=== PATIENT | male | born 1995 | race Two or more races ===

== ENCOUNTER 2018-07-20 20:47 | Inpatient (IN) | payer BC ==
[~2018-07-20] VITALS: Ht 172.7 cm; Wt 72.1 kg
[2018-07-20] MEDS ORDERED: IBUPROFEN600 MG ORAL (23:36)
[2018-07-20] MEDS ORDERED: DOXYCYCLINE MO100 MG ORAL (23:36)
[2018-07-21] VITALS: BP 141/81
[2018-07-21] MEDS ORDERED: Norco 5mg/325mg tab ORAL PRN (01:00)
[2018-07-21] MEDS: Vancomycin 1 GM in D5W 275 ML IVPB SCH ×2 (03:43→14:35)
[2018-07-21 04:00] VITALS: BP 111/62
[2018-07-21] MEDS ORDERED: ceFAZolin sod 1 GM in D5W 55 ML IVPB SCH (06:00)
[2018-07-21 06:07] LABS: BASOPHILS % (AUTO) 0.6 % (0.0-2.0); EOSINOPHILS % (AUTO) 0.7 % (0.0-3.0); HEMATOCRIT 41.2 % (42.0-52.0); HEMOGLOBIN 14.7 G/DL (14.2-18.0); LYMPHOCYTES % (AUTO) 8.8 % (20.0-45.0); MEAN CORPUSCULAR VOLUME 84 FL (80-99); MONOCYTES % (AUTO) 10.1 % (1.0-10.0); NEUTROPHILS % (AUTO) 79.8 % (45.0-75.0); PLATELET COUNT 278 K/UL (150-450); RED BLOOD COUNT 4.87 M/UL (4.70-6.10); WHITE BLOOD COUNT 15.7 K/UL (4.8-10.8)
[2018-07-21 06:12] LABS: ALANINE AMINOTRANSFERASE 18 U/L (12-78); ALBUMIN 3.6 G/DL (3.4-5.0); ALBUMIN/GLOBULIN RATIO 1.2 (1.0-2.7); ALKALINE PHOSPHATASE 60 U/L (46-116); ANION GAP 10 mmol/L (5-15); ASPARTATE AMINO TRANSFERASE 19 U/L (15-37); BILIRUBIN,TOTAL 0.9 MG/DL (0.2-1.0); BLOOD UREA NITROGEN 7 mg/dL (7-18); CALCIUM 8.5 MG/DL (8.5-10.1); CARBON DIOXIDE 25 MMOL/L (21-32); CHLORIDE 106 MMOL/L (98-107); CREATININE 1.1 MG/DL (0.55-1.30); PHOSPHORUS 3.4 MG/DL (2.5-4.9); POTASSIUM 3.3 MMOL/L (3.5-5.1); SODIUM 141 MMOL/L (136-145)
[2018-07-21 08:00] VITALS: BP 120/65
[2018-07-21 12:00] VITALS: BP 122/73
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
[2018-07-21] MEDS: ceFAZolin 1gm/50ml Premix 50 ML IV SCH ×2 (13:29→22:05)
[2018-07-21] MEDS: Norco 5mg/325mg tab ORAL PRN ×2 (13:35→20:53)
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
--- NOTE | 2018-07-21 15:10 | History & Physical ---
History and Physical History & Physicial Abhi Mazariegos MD Jul 21, 2018 15:10
[2018-07-21 16:00] VITALS: BP 107/67
[2018-07-21] MEDS: Magnesium Oxide 400mg tab ORAL SCH (17:08)
[2018-07-21 20:00] VITALS: BP 113/67
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
[2018-07-22 00:36] VITALS: BP 110/61
[2018-07-22] MEDS: Vancomycin 1 GM in D5W 275 ML IVPB SCH ×2 (02:48→15:00)
[2018-07-22 04:58] VITALS: BP 102/59
[2018-07-22] MEDS: ceFAZolin 1gm/50ml Premix 50 ML IV SCH (05:33)
[2018-07-22 06:16] LABS: BASOPHILS % (AUTO) 0.8 % (0.0-2.0); EOSINOPHILS % (AUTO) 4.2 % (0.0-3.0); HEMATOCRIT 44.7 % (42.0-52.0); HEMOGLOBIN 15.5 G/DL (14.2-18.0); LYMPHOCYTES % (AUTO) 16.1 % (20.0-45.0); MEAN CORPUSCULAR VOLUME 85 FL (80-99); MONOCYTES % (AUTO) 13.7 % (1.0-10.0); NEUTROPHILS % (AUTO) 65.2 % (45.0-75.0); PLATELET COUNT 275 K/UL (150-450); RED BLOOD COUNT 5.24 M/UL (4.70-6.10); RED CELL DISTRIBUTION WIDTH 10.1 % (11.6-14.8); WHITE BLOOD COUNT 10.4 K/UL (4.8-10.8)
[2018-07-22 06:41] LABS: ALANINE AMINOTRANSFERASE 16 U/L (12-78); ALBUMIN 3.6 G/DL (3.4-5.0); ALKALINE PHOSPHATASE 68 U/L (46-116); ANION GAP 6 mmol/L (5-15); ASPARTATE AMINO TRANSFERASE 15 U/L (15-37); BILIRUBIN,TOTAL 0.5 MG/DL (0.2-1.0); BLOOD UREA NITROGEN 8 mg/dL (7-18); CALCIUM 8.9 MG/DL (8.5-10.1); CARBON DIOXIDE 30 MMOL/L (21-32); CHLORIDE 104 MMOL/L (98-107); CREATININE 1.1 MG/DL (0.55-1.30); POTASSIUM 3.8 MMOL/L (3.5-5.1); SODIUM 140 MMOL/L (136-145)
[2018-07-22 08:00] VITALS: BP 116/75
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
[2018-07-22] MEDS: Magnesium Oxide 400mg tab ORAL SCH ×2 (09:03→12:36)
[2018-07-22] MEDS: Norco 5mg/325mg tab ORAL PRN (09:15)
--- NOTE | 2018-07-22 10:04 | Pulmonology Progress Note ---
Assessment/Plan Assessment/Plan ASSESSMENT Possible sepsis Leukocytosis-resolved Cellulitis E/lyte imbalance: hypokalemia, hypomagnesemia Asthma PLAN CARE Med Surg floor antibiotics surgery follows wound care as per surgery recs pain management venous duplex BLE results pending DVT prophylaxis supportive care monitor lytes and correct prn stable resp status, no signs of resp distress or bronchospasm dc plan soon on oral abx as per ID recs case discussed and evaluated by supervising physician Subjective Allergies: Coded Allergies: No Known Allergies (Unverified , 07/20/18) Subjective leukocytosis resolved, fever resolved pain controlled seen and evaluated by ID specialist K stable Objective Last 24 Hour Vital Signs Date Time Temp Pulse Resp B/P (MAP) Pulse Ox O2 Delivery O2 Flow Rate FiO2 07/22/18 09:15 98.5 07/22/18 08:00 98.5 71 19 116/75 (89) 99 98.5 07/22/18 04:58 97.9 64 18 102/59 (73) 99 97.9 07/22/18 00:36 97.9 75 18 110/61 (77) 99 97.9 07/21/18 23:16 Room Air 07/21/18 21:23 98.6 07/21/18 20:53 98.6 07/21/18 20:00 98.2 89 18 113/67 (82) 99 98.2 07/21/18 19:32 97 16 98 Room Air 21 07/21/18 19:30 97 18 97 Room Air 21 07/21/18 16:00 98.6 69 19 107/67 (80) 99 98.6 07/21/18 12:00 97.9 87 18 122/73 (89) 99 97.9 Intake and Output 07/21/18 07/22/18 19:00 07:00 Intake Total 480 ml 725.000 ml Output Total 800 ml Balance -320 ml 725.000 ml Intake Oral 480 ml 350 ml IV Total 375.000 ml Output Urine Total 800 ml # Voids 2 General Appearance: no acute distress HEENT: normocephalic, atraumatic, anicteric, mucous membranes moist, PERRL Respiratory/Chest: lungs clear, normal breath sounds, no respiratory distress Cardiovascular: normal rate Abdomen: soft, non tender, non distended Extremities: no edema Skin: other - left lower leg with wound, dressing C/D/I Neurologic/Psychiatric: alert, oriented x 3, responsive Musculoskeletal: normal muscle bulk Laboratory Tests 07/22/18 05:35: White Blood Count 10.4, Red Blood Count 5.24, Hemoglobin 15.5, Hematocrit 44.7, Mean Corpuscular Volume 85, Mean Corpuscular Hemoglobin 29.5, Mean Corpuscular Hemoglobin Concent 34.7, Red Cell Distribution Width 10.1L, Platelet Count 275, Mean Platelet Volume 5.9L, Neutrophils (%) (Auto) 65.2, Lymphocytes (%) (Auto) 16.1L, Monocytes (%) (Auto) 13.7H, Eosinophils (%) (Auto) 4.2H, Basophils (%) ( Auto) 0.8, Erythrocyte Sedimentation Rate 7, Sodium Level 140, Potassium Level 3.8, Chloride Level 104, Carbon Dioxide Level 30, Anion Gap 6, Blood Urea Nitrogen 8, Creatinine 1.1, Estimat Glomerular Filtration Rate > 60, Glucose Level 88, Calcium Level 8.9, Phosphorus Level 4.0, Magnesium Level 2.0, Total Bilirubin 0.5, Aspartate Amino Transf (AST/SGOT) 15, Alanine Aminotransferase ( ALT/SGPT) 16, Alkaline Phosphatase 68, C-Reactive Protein, Quantitative 7.1H, Total Protein 7.2, Albumin 3.6, Globulin 3.6, Albumin/Globulin Ratio 1.0 Current Medications Medications (Trade) Dose Ordered Sig/[place] Route PRN Reason Start Time Stop Time Status Last Admin Dose Admin Acetaminophen (Tylenol) 650 mg Q6H PRN ORAL Mild Pain/Temp > 100.5 07/21/18 01:00 08/20/18 00:59 07/21/18 03:36 Acetaminophen/ Hydrocodone Bitart ([place] 5/325) 1 tab Q6H PRN ORAL Severe Pain (Pain Scale 7-10) 07/21/18 02:18 07/28/18 02:17 07/22/18 09:15 Budesonide/ Formoterol Fumarate (Symbicort 160/ 4.5) 2 puff TWICE A DAY INH 07/21/18 18:00 08/20/18 17:59 07/22/18 09:02 Magnesium Oxide (Mag-Ox 400mg) 400 mg THREE TIMES A DAY ORAL 07/21/18 18:00 07/23/18 17:59 07/22/18 09:03 Ondansetron HCl (Zofran) 4 mg Q4H PRN IVP Nausea & Vomiting 07/21/18 01:00 08/20/18 00:59 Temazepam (Restoril) 15 mg HSPRN PRN ORAL Insomnia 07/21/18 21:00 07/28/18 20:59 Vancomycin HCl (Vanco rx to dose) 1 ea DAILY PRN MISC per protocol 07/21/18 01:45 08/20/18 01:44 Vancomycin HCl 1 gm/Dextrose 275 ml @ 183.708 mls/hr Q12H IVPB 07/21/18 03:00 07/26/18 02:59 07/22/18 02:48 Marilin Reyes NP Jul 22, 2018 10:04
--- NOTE | 2018-07-22 11:42 | General Surgery Progress Note ---
General Surgery-Progress Note Subjective Additional Comments leukocytosis resolved. wounds stable. doing well. comfortable. minimal pain. ambulatory. Objective Last 24 Hour Vital Signs Date Time Temp Pulse Resp B/P (MAP) Pulse Ox O2 Delivery O2 Flow Rate FiO2 07/22/18 11:26 94 18 98 Room Air 21 07/22/18 11:26 94 18 98 Room Air 21 07/22/18 09:45 98.5 07/22/18 09:15 98.5 07/22/18 09:00 Room Air 07/22/18 08:00 98.5 71 19 116/75 (89) 99 98.5 07/22/18 04:58 97.9 64 18 102/59 (73) 99 97.9 07/22/18 00:36 97.9 75 18 110/61 (77) 99 97.9 07/21/18 23:16 Room Air 07/21/18 20:53 98.6 07/21/18 20:00 98.2 89 18 113/67 (82) 99 98.2 07/21/18 19:32 97 16 98 Room Air 21 07/21/18 19:30 97 18 97 Room Air 21 07/21/18 16:00 98.6 69 19 107/67 (80) 99 98.6 07/21/18 12:00 97.9 87 18 122/73 (89) 99 97.9 I&O Intake and Output 07/21/18 07/22/18 19:00 07:00 Intake Total 480 ml 725.000 ml Output Total 800 ml Balance -320 ml 725.000 ml Intake Oral 480 ml 350 ml IV Total 375.000 ml Output Urine Total 800 ml # Voids 2 Dressing: saturated Wound: clean Drains: none Cardiovascular: RSR Respiratory: clear Abdomen: soft, flat, non-tender, present bowel sounds Extremities: other - right leg with improved edema and cellulitis. wound clean with only serous drainage today. overall improving. Laboratory Tests Test 07/22/18 05:35 White Blood Count 10.4 K/UL (4.8-10.8) Red Blood Count 5.24 M/UL (4.70-6.10) Hemoglobin 15.5 G/DL (14.2-18.0) Hematocrit 44.7 % (42.0-52.0) Mean Corpuscular Volume 85 FL (80-99) Mean Corpuscular Hemoglobin 29.5 PG (27.0-31.0) Mean Corpuscular Hemoglobin Concent 34.7 G/DL (32.0-36.0) Red Cell Distribution Width 10.1 % (11.6-14.8) L Platelet Count 275 K/UL (150-450) Mean Platelet Volume 5.9 FL (6.5-10.1) L Neutrophils (%) (Auto) 65.2 % (45.0-75.0) Lymphocytes (%) (Auto) 16.1 % (20.0-45.0) L Monocytes (%) (Auto) 13.7 % (1.0-10.0) H Eosinophils (%) (Auto) 4.2 % (0.0-3.0) H Basophils (%) (Auto) 0.8 % (0.0-2.0) Erythrocyte Sedimentation Rate 7 MM/HR (0-15) Sodium Level 140 MMOL/L (136-145) Potassium Level 3.8 MMOL/L (3.5-5.1) Chloride Level 104 MMOL/L (98-107) Carbon Dioxide Level 30 MMOL/L (21-32) Anion Gap 6 mmol/L (5-15) Blood Urea Nitrogen 8 mg/dL (7-18) Creatinine 1.1 MG/DL (0.55-1.30) Estimat Glomerular Filtration Rate > 60 mL/min (>60) Glucose Level 88 MG/DL (74-106) Calcium Level 8.9 MG/DL (8.5-10.1) Phosphorus Level 4.0 MG/DL (2.5-4.9) Magnesium Level 2.0 MG/DL (1.8-2.4) Total Bilirubin 0.5 MG/DL (0.2-1.0) Aspartate Amino Transf (AST/SGOT) 15 U/L (15-37) Alanine Aminotransferase (ALT/SGPT) 16 U/L (12-78) Alkaline Phosphatase 68 U/L (46-116) C-Reactive Protein, Quantitative 7.1 mg/dL (0.00-0.90) H Total Protein 7.2 G/DL (6.4-8.2) Albumin 3.6 G/DL (3.4-5.0) Globulin 3.6 g/dL Albumin/Globulin Ratio 1.0 (1.0-2.7) Plan Problems: (1) Cellulitis Assessment & Plan: right lower leg with prior lacerations noted, wound dehiscence, seropurulent drainage, cellulitis afebrile, HD stable, leukocytosis resolved wound evaluated at bedside and 3cm transverse laceration noted with dehiscense of medial aspect and seropurulent drainage. wound explored and no abscess cavity noted wounds cleaned, packing and dressings applied -Abx as per ID -Elevate affected extremity -packing and dressing BID -wash wounds with saline -okay to ambulate -okay to d/c from surgical standpoint Jose Narayanan Jul 22, 2018 11:41
[2018-07-22 12:00] VITALS: BP 119/71
--- NOTE | 2018-07-22 14:26 | Internal Med Progress Note ---
Subjective Date of Service: Jul 22, 2018 Physician Name Dom Luna Attending Physician Abhi Mazariegos MD Current Medications Medications (Trade) Dose Ordered Sig/[place] Route PRN Reason Start Time Stop Time Status Last Admin Dose Admin Acetaminophen (Tylenol) 650 mg Q6H PRN ORAL Mild Pain/Temp > 100.5 07/21/18 01:00 08/20/18 00:59 07/21/18 03:36 Acetaminophen/ Hydrocodone Bitart ([place] 5/325) 1 tab Q6H PRN ORAL Severe Pain (Pain Scale 7-10) 07/21/18 02:18 07/28/18 02:17 07/22/18 09:15 Budesonide/ Formoterol Fumarate (Symbicort 160/ 4.5) 2 puff TWICE A DAY INH 07/21/18 18:00 08/20/18 17:59 07/22/18 09:02 Magnesium Oxide (Mag-Ox 400mg) 400 mg THREE TIMES A DAY ORAL 07/21/18 18:00 07/23/18 17:59 07/22/18 12:36 Ondansetron HCl (Zofran) 4 mg Q4H PRN IVP Nausea & Vomiting 07/21/18 01:00 08/20/18 00:59 Temazepam (Restoril) 15 mg HSPRN PRN ORAL Insomnia 07/21/18 21:00 07/28/18 20:59 Vancomycin HCl (Vanco rx to dose) 1 ea DAILY PRN MISC per protocol 07/21/18 01:45 08/20/18 01:44 Vancomycin HCl 1 gm/Dextrose 275 ml @ 183.708 mls/hr Q12H IVPB 07/21/18 03:00 07/26/18 02:59 07/22/18 02:48 Allergies: Coded Allergies: No Known Allergies (Unverified , 07/20/18) ROS Limited/Unobtainable: No Constitutional: Reports: no symptoms HEENT: Reports: no symptoms Cardiovascular: Reports: no symptoms Respiratory: Reports: no symptoms Gastrointestinal/Abdominal: Reports: no symptoms Genitourinary: Reports: no symptoms Neurologic/Psychiatric: Reports: no symptoms Subjective 23 YO M admitted with right leg cellulitis. Cover for Int Med-Dr Mazariegos. Objective Last Vital Signs Date Time Temp Pulse Resp B/P (MAP) Pulse Ox O2 Delivery O2 Flow Rate FiO2 07/22/18 12:00 97.8 72 18 119/71 (87) 99 97.8 07/22/18 11:26 Room Air 21 General Appearance: WD/WN, no apparent distress, alert EENT: PERRL/EOMI, normal ENT inspection Neck: non-tender, normal alignment, supple, normal inspection Cardiovascular: normal peripheral pulses, normal rate, regular rhythm, no gallop/murmur, no JVD Respiratory/Chest: chest wall non-tender, lungs clear, normal breath sounds, no respiratory distress, no accessory muscle use Abdomen: normal bowel sounds, non tender, soft, no organomegaly, no mass Extremities: normal range of motion, non-tender Neurologic: senior systems administrator II-XII grossly normal, no motor/sensory deficits Skin: normal pigmentation, warm/dry, other - right calf erythema Laboratory Tests Test 07/22/18 05:35 White Blood Count 10.4 K/UL (4.8-10.8) Red Blood Count 5.24 M/UL (4.70-6.10) Hemoglobin 15.5 G/DL (14.2-18.0) Hematocrit 44.7 % (42.0-52.0) Mean Corpuscular Volume 85 FL (80-99) Mean Corpuscular Hemoglobin 29.5 PG (27.0-31.0) Mean Corpuscular Hemoglobin Concent 34.7 G/DL (32.0-36.0) Red Cell Distribution Width 10.1 % (11.6-14.8) L Platelet Count 275 K/UL (150-450) Mean Platelet Volume 5.9 FL (6.5-10.1) L Neutrophils (%) (Auto) 65.2 % (45.0-75.0) Lymphocytes (%) (Auto) 16.1 % (20.0-45.0) L Monocytes (%) (Auto) 13.7 % (1.0-10.0) H Eosinophils (%) (Auto) 4.2 % (0.0-3.0) H Basophils (%) (Auto) 0.8 % (0.0-2.0) Erythrocyte Sedimentation Rate 7 MM/HR (0-15) Sodium Level 140 MMOL/L (136-145) Potassium Level 3.8 MMOL/L (3.5-5.1) Chloride Level 104 MMOL/L (98-107) Carbon Dioxide Level 30 MMOL/L (21-32) Anion Gap 6 mmol/L (5-15) Blood Urea Nitrogen 8 mg/dL (7-18) Creatinine 1.1 MG/DL (0.55-1.30) Estimat Glomerular Filtration Rate > 60 mL/min (>60) Glucose Level 88 MG/DL (74-106) Calcium Level 8.9 MG/DL (8.5-10.1) Phosphorus Level 4.0 MG/DL (2.5-4.9) Magnesium Level 2.0 MG/DL (1.8-2.4) Total Bilirubin 0.5 MG/DL (0.2-1.0) Aspartate Amino Transf (AST/SGOT) 15 U/L (15-37) Alanine Aminotransferase (ALT/SGPT) 16 U/L (12-78) Alkaline Phosphatase 68 U/L (46-116) C-Reactive Protein, Quantitative 7.1 mg/dL (0.00-0.90) H Total Protein 7.2 G/DL (6.4-8.2) Albumin 3.6 G/DL (3.4-5.0) Globulin 3.6 g/dL Albumin/Globulin Ratio 1.0 (1.0-2.7) Intake and Output 07/21/18 07/22/18 19:00 07:00 Intake Total 480 ml 725.000 ml Output Total 800 ml Balance -320 ml 725.000 ml Intake Oral 480 ml 350 ml IV Total 375.000 ml Output Urine Total 800 ml # Voids 2 Assessment/Plan Problem List: (1) Asthma (2) Cellulitis of right lower leg Assessment & Plan: No abscess. See ID and surgery note. Continue vanco and cefepime per ID. (3) Laceration of leg, right Assessment & Plan: S/P sutures. Status: stable Assessment/Plan Discharge home on doxycycline. F/U Dr Mazariegos 07/27/18. Dom Luna MD Jul 22, 2018 14:26
[2018-07-22] MEDS ORDERED: DOXYCYCLINE MO100 M2 PO (14:28)
[2018-07-22 16:00] VITALS: BP 122/75
--- NOTE | 2018-07-23 20:22 | Diagnostic Imaging Report ---
APPROVED REPORT CPT Code: 16326 Present Symptoms Lower Extremity Pain: Right Comments: Post injury Right leg BILATERAL: Imaging reveals a patent deep venous system bilaterally. There is no evidence of thrombus within the femoral, popliteal or tibial segments. Doppler indicates normal spontaneous flow within these segments. SUPERFICIAL VENOUS SYSTEM: Imaging reveals acute thrombus in the right greater saphenous vein. The tip of the thrombus is seen in the 1 cm distal of the saphenofemoral junction (SFJ) proximal thigh level. The remaining segments of the greater saphenous vein are within normal limits. The left greater saphenous vein is within normal limits. Doppler indicates normal spontaneous flow within these segments. There is no evidence of acute deep vein thrombosis.
--- NOTE | 2018-07-24 08:22 | Discharge Summary ---
Discharge Summary Discharge Summary _ DATE OF ADMISSION: 07/20/2018 DATE OF DISCHARGE: 07/22/2018 REASON FOR ADMISSION: 23 years old male with past medical history of asthma, was transferred from [facility] with glass laceration of right lower extremity on 05/2018. Wound apparently was healing. Patient went back to [facility] for suture removal. During examination noted that surrounding area appeared to be tender and erythematous . Patient had difficulties with ambulation. Laboratory workup revealed elevated leukocytosis and elevated lactic acid . Patient subsequently was transferred to [facility] for treatment of cellulitis and possible sepsis. Patient admitted with diagnosis of right lower extremity cellulitis, possible abscess, possible sepsis, history of asthma. CONSULTANTS: pulmonary Dr. Chaudhary ID specialist Dr. Zamora surgery Dr. Narayanan [facility] COURSE: Patient admitted to medical surgical floor. Patient started on broad-spectrum antibiotics. ID specialist closely followed. DVT prophylaxis provided. Pain management was addressed. Blood culture were negative. Leukocytosis resolved. General surgery consult was requested for evaluation. Wound was evaluated at the bedside. 3 centimeters transverse laceration was noted with dehiscence of medial aspect and seropurulent drainage. Wound was explored , and no abscess cavity was noted. Surgeon recommended packing and dressing twice a day. Wash wound with saline. Elevate affected extremity. Surgeon cleared patient for discharge from surgical standpoint. Follow-up with a surgeon for wound check. DVT prophylaxis provided. Initially presented with hypokalemia and hypomagnesemia. Electrolytes were corrected, stable prior to discharge. Supportive care provided. Respiratory status remained stable, no signs of respiratory distress or bronchospasm. Pulse oximetry was stable on room air. Patient was discharged home with oral antibiotic as per infectious disease recommendations. Follow up with primary care provider and surgeon. FINAL DIAGNOSES: Possible sepsis Cellulitis right lower extremity Laceration right lower extremity Asthma Electrolyte imbalance: hypokalemia and hypomagnesemia Leukocytosis, resolved DISCHARGE MEDICATIONS: See Medication Reconciliation list. DISCHARGE INSTRUCTIONS: Patient discharged home. Patient was instructed on wound care. Follow up with the surgeon and primary care provider in one week as instructed Marilin Reyes NP Jul 24, 2018 08:22
== END 2018-07-22 17:01 | disposition home or self-care (01) | DRG 872 ==
LOC: 4E 22:50
DX: A41.9 Sepsis, unspecified organism (principal); L03.115 Cellulitis of right lower limb; T81.30XD Disruption of wound, unspecified, subsequent encounter; Y84.8 Other medical procedures as the cause of abnormal reaction of the patient, or of later complication, without mention of misadventure at the time of the procedure; J45.909 Unspecified asthma, uncomplicated; E87.6 Hypokalemia; E83.42 Hypomagnesemia
CPT/HCPCS: 36415; 80053; 83735; 84100; 85025; 85651; 86140; 87040; 93970; 94640; J8499